=== PATIENT | male | born 1965 | race African-American/Black ===

== ENCOUNTER 2022-05-07 05:28 | Inpatient (IN) | payer MEDICAID ==
[~2022-05-07] VITALS: Ht 170.2 cm; Wt 60.8 kg
[2022-05-07 06:21] LABS: BASOPHILS % 1.3 % (0.0-2.0); EOSINOPHILS % 5.1 % (0.0-5.0); HEMATOCRIT. 38.8 % (42.0-52.0); HEMOGLOBIN. 12.4 g/dL (14.0-18.0); LYMPHOCYTES % 43.7 % (20.0-50.0); MEAN CORPUSCULAR VOLUME 81.5 fL (80.0-94.0); MEAN PLATELET VOLUME 7.8 fl (7.4-10.4); MONOCYTES % 8.2 % (2.0-8.0); NEUTROPHILS % 41.7 % (40.0-76.0); PLATELET 401 x1000/uL (130-400); RED BLOOD CELL COUNT 4.75 mill/uL (4.7-6.1)
[2022-05-07] MEDS ORDERED: IPRATROPIUM BROMIDE (0.02%) 0.5MG/2.5ML NEB HHN STA (06:27)
[2022-05-07] MEDS ORDERED: ALBUTEROL (0.083%) 2.5MG/3ML NEB HHN STA (06:27)
[2022-05-07 06:28] LABS: CHLORIDE 109 mEq/L (98-107)
[2022-05-07 06:29] LABS: PROTHROMBIN TIME 10.3 sec (9.6-11.0)
[2022-05-07] MEDS ORDERED: ASPIRIN 81MG TABLET PO ONE (06:30)
[2022-05-07] MEDS ORDERED: FUROSEMIDE 40MG/4ML VIAL IVP ONE (07:00)
[2022-05-07] MEDS ORDERED: ALBU6.7H3 INH (14:40)
[2022-05-07] MEDS ORDERED: IPRATROPIUM/ALBUTEROL 0.5-3(2.5)MG/3ML NEB HHN PRN (14:45)
[2022-05-07] MEDS: FUROSEMIDE 40MG/4ML VIAL IVP SCH (14:45)
[2022-05-07] MEDS ORDERED: ASPIRIN 81MG TABLET PO NR (15:00)
[2022-05-07] MEDS: PREDNISONE 20MG TABLET PO SCH (15:20)
[2022-05-07 21:10] VITALS: BP 141/97
[2022-05-07 21:19] VITALS: BP 141/97
[2022-05-07] MEDS ORDERED: AMLO2.5T45 PO (22:27)
[2022-05-07] MEDS ORDERED: GABA-532 PO (22:27)
[2022-05-07] MEDS ORDERED: FURO-152 PO (22:27)
[2022-05-07] MEDS ORDERED: BUPR75TA8 PO (22:27)
[2022-05-07] MEDS ORDERED: EMTR1TAB12 PO (22:27)
[2022-05-07] MEDS ORDERED: CLONIDINE 0.1MG TABLET PO PRN (22:30)
[2022-05-07] MEDS ORDERED: ONDANSETRON HCL 4MG/2ML INJ IV PRN (22:30)
[2022-05-08] VITALS (7 sets, daily range): BP systolic 106–135; BP diastolic 68–93
[2022-05-08] MEDS: ACETAMINOPHEN 325MG TABLET PO PRN ×2 (00:31→19:58)
[2022-05-08 01:13] LABS: *AMPHETAMINES SCREEN URINE NEGATIVE (NEGATIVE); *BARBITURATES SCREEN URINE NEGATIVE (NEGATIVE); *BENZODIAZEPINES SCREEN URINE NEGATIVE (NEGATIVE); *COCAINE SCREEN URINE PRESUMTIVE POSITIVE (NEGATIVE); CANNABINOID URINE SCREEN NEGATIVE (NEGATIVE); METHADONE URINE SCREEN NEGATIVE (NEGATIVE); OPIATES URINE SCREEN NEGATIVE (NEGATIVE); PHENCYCLIDINE URINE SCREEN NEGATIVE (NEGATIVE)
[2022-05-08 06:50] LABS: BASOPHILS % 0.9 % (0.0-2.0); EOSINOPHILS % 0.8 % (0.0-5.0); HEMATOCRIT. 38.5 % (42.0-52.0); HEMOGLOBIN. 12.4 g/dL (14.0-18.0); LYMPHOCYTES % 25.7 % (20.0-50.0); MEAN CORPUSCULAR HEMOGLOBIN 26.1 pg (28.0-32.0); MEAN CORPUSCULAR VOLUME 80.9 fL (80.0-94.0); MEAN PLATELET VOLUME 8.3 fl (7.4-10.4); MONOCYTES % 7.1 % (2.0-8.0); NEUTROPHILS % 65.5 % (40.0-76.0); PLATELET 414 x1000/uL (130-400); RED BLOOD CELL COUNT 4.76 mill/uL (4.7-6.1); RED CELL DISTRIBUTION WIDTH 13.8 % (11.6-14.6)
[2022-05-08] MEDS: OMEPRAZOLE 20MG CAPSULE EXTENDED RELEASE PO SCH (06:55)
[2022-05-08 07:19] LABS: CHLORIDE 107 mEq/L (98-107)
[2022-05-08 07:29] LABS: CREATINE KINASE 50 IU/L (39-308); HDL CHOLESTEROL 48 mg/dL (40-59); LDL CHOLESTEROL 128 mg/dL (5-100)
[2022-05-08] MEDS: FUROSEMIDE 40MG/4ML VIAL IVP SCH ×3 (08:00→22:57)
[2022-05-08] MEDS: PREDNISONE 20MG TABLET PO SCH (08:00)
[2022-05-08] MEDS: ENOXAPARIN 40MG/0.4ML SYR SUBCUT SCH (08:15)
[2022-05-08] MEDS ORDERED: EMTR1TAB12 MT (11:11)
[2022-05-08] MEDS ORDERED: DOLU50TA PO ×2 (11:13→12:58)
[2022-05-08] MEDS ORDERED: TAMS-11 PO (11:15)
[2022-05-08] MEDS ORDERED: NON FORMULARY PATIENT HOME MED XX SCH ×2 (11:15)
[2022-05-08] MEDS ORDERED: QUET25TA MT (11:16)
[2022-05-08] MEDS ORDERED: BUPR300T52 PO (11:16)
[2022-05-08] MEDS ORDERED: LOSA25TA26 MT (12:58)
[2022-05-08] MEDS ORDERED: P20 PO (12:58)
[2022-05-08] MEDS ORDERED: BUDE6HFA INH (12:58)
[2022-05-08] MEDS ORDERED: EMTR1TAB12 PO (12:58)
[2022-05-08] MEDS ORDERED: FURO-151 MT (12:58)
[2022-05-08] MEDS: TAMSULOSIN HCL 0.4MG SR CAPSULE PO SCH (13:13)
[2022-05-08 16:59] LABS: CREATINE KINASE 53 IU/L (39-308); CREATINE KINASE MB FRACTION < 1.0 ng/mL (0.5-3.6)
[2022-05-08] MEDS: POTASSIUM CHLORIDE 20MEQ/PACKET PO SCH (18:00)
[2022-05-08] MEDS: IPRATROPIUM/ALBUTEROL 0.5-3(2.5)MG/3ML NEB HHN SCH ×2 (18:35→20:53)
[2022-05-08] MEDS: BUDESONIDE 0.5MG/2ML NEB HHN SCH ×2 (18:35→20:54)
[2022-05-08] MEDS ORDERED: MORPHINE SULFATE 2 MG/ML CPJ (NOT FOR IM USE) IV PRN (22:15)
[2022-05-08] MEDS: GABAPENTIN 300MG CAPSULE PO SCH (22:56)
[2022-05-09] MEDS: IPRATROPIUM/ALBUTEROL 0.5-3(2.5)MG/3ML NEB HHN SCH ×2 (02:37→09:21)
[2022-05-09 05:10] VITALS: BP 117/82
[2022-05-09] MEDS: OMEPRAZOLE 20MG CAPSULE EXTENDED RELEASE PO SCH (06:54)
[2022-05-09] MEDS: GABAPENTIN 300MG CAPSULE PO SCH ×2 (06:55→13:17)
[2022-05-09 08:00] VITALS: BP 120/71
[2022-05-09] MEDS: POTASSIUM CHLORIDE 20MEQ/PACKET PO SCH (08:49)
[2022-05-09] MEDS: ACETAMINOPHEN 325MG TABLET PO PRN (08:49)
[2022-05-09] MEDS: ENOXAPARIN 40MG/0.4ML SYR SUBCUT SCH (08:50)
[2022-05-09] MEDS: TAMSULOSIN HCL 0.4MG SR CAPSULE PO SCH (08:50)
[2022-05-09] MEDS: PREDNISONE 20MG TABLET PO SCH (08:50)
[2022-05-09] MEDS: BUDESONIDE 0.5MG/2ML NEB HHN SCH (09:21)
[2022-05-09 11:30] VITALS: BP 120/71
[2022-05-09 12:00] VITALS: BP 109/74
[2022-05-09] MEDS ORDERED: FUROSEMIDE 40MG TABLET PO SCH (21:00)
[2022-05-10] MEDS ORDERED: FAMOTIDINE 20MG TABLET PO SCH (09:00)
== END 2022-05-09 13:40 | disposition home or self-care (01) | DRG 194 ==
LOC: ER 05:28 → EDBEDREQ 09:00 → 3WST 22:01
PROVIDERS: ADMIT Internal Medicine; ATTEND Internal Medicine
DX: I11.0 Hypertensive heart disease with heart failure (principal); J96.01 Acute respiratory failure with hypoxia; I21.A1 Myocardial infarction type 2; I31.39 Other pericardial effusion (noninflammatory); E44.1 Mild protein-calorie malnutrition; I27.21 Secondary pulmonary arterial hypertension; D72.10 Eosinophilia, unspecified; J44.1 Chronic obstructive pulmonary disease with (acute) exacerbation; I50.43 Acute on chronic combined systolic (congestive) and diastolic (congestive) heart failure; J81.1 Chronic pulmonary edema; Z20.822 Contact with and (suspected) exposure to COVID-19; I08.1 Rheumatic disorders of both mitral and tricuspid valves; F17.210 Nicotine dependence, cigarettes, uncomplicated; F14.90 Cocaine use, unspecified, uncomplicated; E78.00 Pure hypercholesterolemia, unspecified; E78.5 Hyperlipidemia, unspecified; N40.0 Benign prostatic hyperplasia without lower urinary tract symptoms; Z79.899 Other long term (current) drug therapy; Z68.21 Body mass index [BMI] 21.0-21.9, adult
CPT/HCPCS: 36415; 71045; 80048; 80053; 80061; 80305; 82550; 82553; 83880; 84484; 85025; 85379; 87426; 93005; 93306; 94640; 99291; C9803; J1650; J1940; J7512; J7626